=== PATIENT | male | born 1995 | race Caucasian/White ===

== ENCOUNTER 2023-11-09 09:47 | Emergency (ER) | payer OTHER ==
[2023-11-09] MEDS: TETANUS/DIPHTHERIA/PERTUSSIS 0.5 ML SYRINGE IM ONE (11:17)
--- NOTE | 2023-11-09 11:33 | ED Physician Documentation ---
History of Present Illness - Stated complaint Stated Complaint: L THUMB LAC - Chief complaint Chief Complaint: Ext Problem - Additonal information Additional information: Laceration to left thumb after patient was cutting onions yesterday. Patient notes this occurred around 8 PM last night. He placed a Band-Aid on it no active bleeding this morning. He contacted his physician's office this morning and they told him to come to the emergency department. Patient is right-handed. He is unsure of when his last tetanus was. No active bleeding on arrival. Patient had it covered with a Band-Aid. PD PAST MEDICAL HISTORY - Past Medical History Past Medical History: No - Past Surgical History Past Surgical History: No - Present Medications Home Medications: Ambulatory Orders Medication Instructions Recorded Confirmed Dextroamphetamine/Amphetamine 10 mg PO BID PRN 11/09/23 11/09/23 [Adderall 10 mg Tablet] Methylphenidate HCl [Concerta] 32 mg PO DAILY 11/09/23 11/09/23 - Allergies Allergies/Adverse Reactions: Allergies Allergy/AdvReac Type Severity Reaction Status Date / Time No Known Drug Allergies Allergy Verified 11/09/23 10:10 - Social History Does the pt smoke?: No Smoking Status: Never smoker Does the pt drink ETOH?: No Does the pt have substance abuse?: No - Immunizations Immunizations: TDAP >10years/unknown - POLST Patient has POLST: No PD ED PE NORMAL - Vitals Vital signs reviewed: Yes - General General: Alert and oriented X 3 - HEENT HEENT: Atraumatic - Neck Neck: Supple, no meningeal sign - Cardiac Cardiac: RRR, No murmur, No gallop, No rub - Respiratory Respiratory: No respiratory distress, Clear bilaterally - Derm Derm: Other (Abrasion to distal portion of left thumb with sensation intact distally and full range of motion at DIP and MCP joint. Good capillary refill no signs of infection. Abrasion less than 1 cm in size does cross over nailbed but no active bleeding appreciated. Area covering nailbed is less than 3 mm.) - Extremities Extremities: No deformity - Neuro Neuro: Alert and oriented X 3 Results - Vitals Vitals: Vital Signs - 24 hr 11/09/23 10:10 Temperature 36.4 C L Heart Rate 60 Respiratory 16 Rate Blood Pressure 164/81 H O2 Saturation 100 Oxygen O2 Source Room air PD Medical Decision Making - ED course Complexity details: re-evaluated patient ED course: Patient is a 27-year-old male presenting to the emergency department with laceration to left thumb. Area is less than 1 cm in size total area does go over left nailbed but no active bleeding and less than 3 mm in size. According to patient he was cutting onions yesterday around 8 PM. Wound is over 12 hours old at this time of evaluation. Discussed with patient appears clean dry will place small amount of Dermabond over nailbed laceration and patient was rewrapped here in emergency department. He has no deficits full range of motion good capillary refill in place good sensation intact distally. Tetanus shot was updated here in emergency department and patient instructed to keep wound clean dry and Dermabond would fall off on its own. If he develops any redness swelling warmth fevers discharge she should return to the emergency department. Departure - Departure Disposition: 01 Home, Self Care Clinical Impression: Abrasion of left thumb Condition: Good Instructions: ED Abrasion Comments: You were seen here in the emergency department for the abrasion to your left thumb I have updated your tetanus shot. Keep wound clean dry and covered until symptoms resolve. I placed a small amount of Dermabond do not pick at it keep it clean and dry.
[2023-11-09 11:52] VITALS: BP 128/82; O2SAT 99
== END 2023-11-09 11:43 | disposition home or self-care (01) ==
LOC: ED 09:47
DX: S61.012A Laceration without foreign body of left thumb without damage to nail, initial encounter (principal); S60.312A Abrasion of left thumb, initial encounter; W26.0XXA Contact with knife, initial encounter; Y93.G1 Activity, food preparation and clean up
CPT/HCPCS: 12001; 90471; 99283